=== PATIENT | male | born 1935 ===

== ENCOUNTER → 2017-05-24 | Outpatient (CLI) | payer MEDICARE, OTHER ==
[~2017-05-24] MED LIST: ASPI325 PO; CLON.1 PO; CLON.2 PO; CORTISONE28 GM TOP; CYCL10 PO; DOC250 PO; FURO20; HYDACE5 PO; HYDR1TAB94 PO; Hair, Skin & N1 EACH PO; LEVFLO500 PO; LORATADINE5 MG/5 M1 PO; LOSA25; LOSA50 PO; MELA3 PO; META800 PO; METO50ER PO; MIRT30 PO; Mucinex600 MG PO; OXYM.05NI; SENN187 PO; TAMS.4ER PO; TRAM50 PO; Valerian Root500 MG PO; XARELTO15 MG PO; Zantac150 MG PO; [UNRECOGNIZED DRUG - REMARK] PO
[2017-05-24 10:17] LABS: Microalbumin, Urine Quant. <5.000 mg/L (0.000-20.000); Protein, Urine Quantitative <5.0 mg/dL (0.0-11.9)
== END ==
LOC: LAB 08:48
PROVIDERS: Internal Medicine Nephrology
DX: N18.2 Chronic kidney disease, stage 2 (mild) (principal); D63.1 Anemia in chronic kidney disease; N25.81 Secondary hyperparathyroidism of renal origin; E55.9 Vitamin D deficiency, unspecified; E78.00 Pure hypercholesterolemia, unspecified; R94.6 Abnormal results of thyroid function studies; R94.5 Abnormal results of liver function studies; R76.9 Abnormal immunological finding in serum, unspecified
CPT/HCPCS: 81050; 82043; 84156

== ENCOUNTER → 2017-09-19 | Outpatient (CLI) | payer MEDICARE, OTHER ==
[~2017-09-19] MED LIST changes: -ASPI325 PO; -CLON.1 PO; -CLON.2 PO; -CORTISONE28 GM TOP; -DOC250 PO; -FURO20; -HYDR1TAB94 PO; -Hair, Skin & N1 EACH PO; -LEVFLO500 PO; -LORATADINE5 MG/5 M1 PO; -LOSA25; -LOSA50 PO; -MELA3 PO; -META800 PO; -METO50ER PO; -MIRT30 PO; -Mucinex600 MG PO; -OXYM.05NI; -SENN187 PO; -TAMS.4ER PO; -TRAM50 PO; -Valerian Root500 MG PO; -XARELTO15 MG PO; -Zantac150 MG PO
[2017-09-19 18:27] LABS: U Amphetamine Screen Not Detected; U Barbituate Screen DETECTED; U Benzodiazapine Screen DETECTED; U Buprenorphine Screen Not Detected; U Cannabinoids Screen Not Detected; U Cocaine Screen Not Detected; U Methadone Screen Not Detected; U Methamphetamine Screen DETECTED; U Opiates Screen Not Detected; U Oxycodone Screen Not Detected; U Phencyclidine Screen Not Detected
[2017-09-19 18:28] LABS: U Propoxyphene Screen Not Detected
== END | disposition home or self-care (01) ==
LOC: LAB 17:54 → LAB SHORT 17:54
PROVIDERS: Internal Medicine Hematology & Oncology
DX: Z51.81 Encounter for therapeutic drug level monitoring (principal); Z79.899 Other long term (current) drug therapy

== ENCOUNTER → 2018-03-27 | Outpatient (CLI) | payer MEDICARE, OTHER ==
[~2018-03-27] MED LIST changes: +ASPI325 PO; +CLON.1 PO; +CLON.2 PO; +CORTISONE28 GM TOP; +DOC250 PO; +FURO20; +HYDR1TAB94 PO; +Hair, Skin & N1 EACH PO; +LEVFLO500 PO; +LORATADINE5 MG/5 M1 PO; +LOSA25; +LOSA50 PO; +MELA3 PO; +META800 PO; +METO50ER PO; +MIRT30 PO; +Mucinex600 MG PO; +OXYM.05NI; +SENN187 PO; +TAMS.4ER PO; +TRAM50 PO; +Valerian Root500 MG PO; +XARELTO15 MG PO; +Zantac150 MG PO
[2018-03-27 13:53] LABS: U Amphetamine Screen Not Detected; U Barbituate Screen DETECTED; U Benzodiazapine Screen Not Detected; U Buprenorphine Screen Not Detected; U Cannabinoids Screen Not Detected; U Cocaine Screen Not Detected; U Methadone Screen Not Detected; U Methamphetamine Screen Not Detected; U Opiates Screen Not Detected; U Oxycodone Screen Not Detected; U Phencyclidine Screen Not Detected; U Propoxyphene Screen Not Detected
== END | disposition home or self-care (01) ==
LOC: LAB 12:54 → LAB SHORT 12:54
PROVIDERS: Internal Medicine Hematology & Oncology
DX: Z51.81 Encounter for therapeutic drug level monitoring (principal); Z79.899 Other long term (current) drug therapy
CPT/HCPCS: G0480

== ENCOUNTER → 2019-11-15 | Outpatient (CLI) | payer MEDICARE, OTHER ==
[2019-11-15 20:10] LABS: U Amphetamine Screen Not Detected; U Barbituate Screen DETECTED; U Benzodiazapine Screen Not Detected; U Buprenorphine Screen Not Detected; U Cannabinoids Screen Not Detected; U Cocaine Screen Not Detected; U Methadone Screen Not Detected; U Methamphetamine Screen Not Detected; U Opiates Screen DETECTED; U Oxycodone Screen Not Detected; U Phencyclidine Screen Not Detected; U Propoxyphene Screen Not Detected
== END | disposition home or self-care (01) ==
LOC: LAB 17:43 → LAB SHORT 17:43
PROVIDERS: Internal Medicine Hematology & Oncology
DX: Z51.81 Encounter for therapeutic drug level monitoring (principal); Z79.899 Other long term (current) drug therapy
CPT/HCPCS: G0480

== ENCOUNTER → 2020-05-29 | Outpatient (CLI) | payer MEDICARE, OTHER ==
[2020-05-29 16:09] LABS: U Benzodiazapine Screen DETECTED
[2020-05-29 16:10] LABS: U Amphetamine Screen Not Detected; U Barbituate Screen DETECTED; U Buprenorphine Screen Not Detected; U Cannabinoids Screen Not Detected; U Cocaine Screen Not Detected; U Methadone Screen Not Detected; U Methamphetamine Screen Not Detected; U Opiates Screen DETECTED; U Oxycodone Screen Not Detected; U Phencyclidine Screen Not Detected; U Propoxyphene Screen Not Detected
== END | disposition home or self-care (01) ==
LOC: LAB 10:30 → LAB SHORT 10:30
PROVIDERS: Internal Medicine Hematology & Oncology
DX: Z51.81 Encounter for therapeutic drug level monitoring (principal); Z79.899 Other long term (current) drug therapy
CPT/HCPCS: G0480

== ENCOUNTER → 2021-10-01 | Outpatient (CLI) | payer MEDICARE, OTHER ==
[2021-10-01 15:12] LABS: U Amphetamine Screen Not Detected; U Barbituate Screen DETECTED; U Benzodiazapine Screen Not Detected; U Buprenorphine Screen Not Detected; U Cannabinoids Screen Not Detected; U Cocaine Screen Not Detected; U Methadone Screen Not Detected; U Methamphetamine Screen Not Detected; U Opiates Screen DETECTED; U Oxycodone Screen Not Detected; U Phencyclidine Screen Not Detected; U Propoxyphene Screen Not Detected
== END | disposition home or self-care (01) ==
LOC: LAB SHORT 10:30 → LAB 10:30
PROVIDERS: Internal Medicine Hematology & Oncology
DX: Z51.81 Encounter for therapeutic drug level monitoring (principal); Z79.899 Other long term (current) drug therapy

== ENCOUNTER → 2021-11-26 | Outpatient (CLI) | payer MEDICARE, OTHER ==
[2021-11-26 12:03] LABS: U Amphetamine Screen Not Detected; U Barbituate Screen DETECTED; U Benzodiazapine Screen Not Detected; U Buprenorphine Screen Not Detected; U Cannabinoids Screen Not Detected; U Cocaine Screen Not Detected; U Methadone Screen Not Detected; U Methamphetamine Screen Not Detected; U Opiates Screen DETECTED; U Oxycodone Screen Not Detected; U Phencyclidine Screen Not Detected; U Propoxyphene Screen Not Detected
== END | disposition home or self-care (01) ==
LOC: LAB SHORT 09:20
PROVIDERS: Internal Medicine Hematology & Oncology
DX: Z51.81 Encounter for therapeutic drug level monitoring (principal); Z79.899 Other long term (current) drug therapy

== ENCOUNTER → 2021-12-24 | Outpatient (CLI) | payer MEDICARE, OTHER ==
[2021-12-24 15:29] LABS: U Amphetamine Screen Not Detected; U Barbituate Screen DETECTED; U Benzodiazapine Screen Not Detected; U Buprenorphine Screen Not Detected; U Cannabinoids Screen Not Detected; U Cocaine Screen Not Detected; U Methadone Screen Not Detected; U Methamphetamine Screen Not Detected; U Opiates Screen DETECTED; U Oxycodone Screen Not Detected; U Phencyclidine Screen Not Detected; U Propoxyphene Screen Not Detected
== END | disposition home or self-care (01) ==
LOC: LAB 09:58 → LAB SHORT 09:58
PROVIDERS: Internal Medicine Hematology & Oncology
DX: Z51.81 Encounter for therapeutic drug level monitoring (principal); Z79.899 Other long term (current) drug therapy
CPT/HCPCS: G0480

== ENCOUNTER → 2022-01-21 | Outpatient (CLI) | payer MEDICARE, OTHER ==
[2022-01-21 12:38] LABS: U Amphetamine Screen Not Detected; U Barbituate Screen DETECTED; U Benzodiazapine Screen Not Detected; U Buprenorphine Screen Not Detected; U Cannabinoids Screen Not Detected; U Cocaine Screen Not Detected; U Methadone Screen Not Detected; U Methamphetamine Screen Not Detected; U Opiates Screen DETECTED; U Oxycodone Screen Not Detected; U Phencyclidine Screen Not Detected; U Propoxyphene Screen Not Detected
== END | disposition home or self-care (01) ==
LOC: LAB SHORT 10:22 → LAB 10:22
PROVIDERS: Internal Medicine Hematology & Oncology
DX: Z51.81 Encounter for therapeutic drug level monitoring (principal); Z79.899 Other long term (current) drug therapy
CPT/HCPCS: G0480

== ENCOUNTER → 2022-02-18 | Outpatient (CLI) | payer MEDICARE, OTHER ==
[2022-02-18 13:30] LABS: U Amphetamine Screen Not Detected; U Barbituate Screen DETECTED; U Benzodiazapine Screen Not Detected; U Buprenorphine Screen Not Detected; U Cannabinoids Screen Not Detected; U Cocaine Screen Not Detected; U Methadone Screen Not Detected; U Methamphetamine Screen Not Detected; U Opiates Screen DETECTED; U Oxycodone Screen Not Detected; U Phencyclidine Screen Not Detected; U Propoxyphene Screen Not Detected
== END | disposition home or self-care (01) ==
LOC: LAB SHORT 10:03
PROVIDERS: Internal Medicine Hematology & Oncology
DX: Z51.81 Encounter for therapeutic drug level monitoring (principal); Z79.899 Other long term (current) drug therapy

== ENCOUNTER → 2022-04-15 | Outpatient (CLI) | payer MEDICARE, OTHER ==
[2022-04-15 12:45] LABS: U Amphetamine Screen Not Detected; U Barbituate Screen DETECTED; U Benzodiazapine Screen Not Detected; U Buprenorphine Screen Not Detected; U Cannabinoids Screen Not Detected; U Cocaine Screen Not Detected; U Methadone Screen Not Detected; U Methamphetamine Screen Not Detected; U Opiates Screen DETECTED; U Oxycodone Screen Not Detected; U Phencyclidine Screen Not Detected; U Propoxyphene Screen Not Detected
== END | disposition home or self-care (01) ==
LOC: LAB 10:09 → LAB SHORT 10:09
PROVIDERS: Internal Medicine Hematology & Oncology
DX: Z51.81 Encounter for therapeutic drug level monitoring (principal); Z79.899 Other long term (current) drug therapy

== ENCOUNTER → 2022-06-10 | Outpatient (CLI) | payer MEDICARE, OTHER ==
[2022-06-10 15:21] LABS: U Amphetamine Screen Not Detected; U Barbituate Screen DETECTED; U Benzodiazapine Screen Not Detected; U Buprenorphine Screen Not Detected; U Cannabinoids Screen DETECTED; U Cocaine Screen Not Detected; U Methadone Screen Not Detected; U Methamphetamine Screen Not Detected; U Opiates Screen DETECTED; U Oxycodone Screen Not Detected; U Phencyclidine Screen Not Detected; U Propoxyphene Screen Not Detected
== END | disposition home or self-care (01) ==
LOC: LAB SHORT 10:30
PROVIDERS: Internal Medicine Hematology & Oncology
DX: Z51.81 Encounter for therapeutic drug level monitoring (principal); Z79.899 Other long term (current) drug therapy

== ENCOUNTER → 2022-07-08 | Outpatient (CLI) | payer MEDICARE, OTHER ==
[2022-07-08 14:01] LABS: U Amphetamine Screen Not Detected; U Methamphetamine Screen Not Detected
[2022-07-08 14:02] LABS: U Barbituate Screen DETECTED; U Benzodiazapine Screen Not Detected; U Buprenorphine Screen Not Detected; U Cannabinoids Screen Not Detected; U Cocaine Screen Not Detected; U Methadone Screen Not Detected; U Opiates Screen DETECTED; U Oxycodone Screen Not Detected; U Phencyclidine Screen Not Detected; U Propoxyphene Screen Not Detected
== END | disposition home or self-care (01) ==
LOC: LAB SHORT 10:16
PROVIDERS: Internal Medicine Hematology & Oncology
DX: Z51.81 Encounter for therapeutic drug level monitoring (principal); Z79.899 Other long term (current) drug therapy

== ENCOUNTER → 2022-09-02 | Outpatient (CLI) | payer MEDICARE, OTHER ==
[2022-09-02 20:02] LABS: U Amphetamine Screen Not Detected; U Barbituate Screen DETECTED; U Benzodiazapine Screen Not Detected; U Buprenorphine Screen Not Detected; U Cannabinoids Screen Not Detected; U Cocaine Screen Not Detected; U Methadone Screen Not Detected; U Methamphetamine Screen Not Detected; U Opiates Screen DETECTED; U Oxycodone Screen Not Detected; U Phencyclidine Screen Not Detected; U Propoxyphene Screen Not Detected
== END | disposition home or self-care (01) ==
LOC: LAB 17:23 → LAB SHORT 17:23
PROVIDERS: Internal Medicine Hematology & Oncology
DX: Z51.81 Encounter for therapeutic drug level monitoring (principal); Z79.899 Other long term (current) drug therapy
CPT/HCPCS: G0480

== ENCOUNTER → 2022-09-30 | Outpatient (CLI) | payer MEDICARE, OTHER ==
[2022-09-30 18:23] LABS: U Amphetamine Screen Not Detected; U Barbituate Screen DETECTED; U Benzodiazapine Screen Not Detected; U Buprenorphine Screen Not Detected; U Cannabinoids Screen Not Detected; U Cocaine Screen Not Detected; U Methadone Screen Not Detected; U Methamphetamine Screen Not Detected; U Opiates Screen DETECTED; U Oxycodone Screen Not Detected; U Phencyclidine Screen Not Detected; U Propoxyphene Screen Not Detected
== END | disposition home or self-care (01) ==
LOC: LAB SHORT 17:14 → LAB 17:14
PROVIDERS: Internal Medicine Hematology & Oncology
DX: Z51.81 Encounter for therapeutic drug level monitoring (principal); Z79.899 Other long term (current) drug therapy
CPT/HCPCS: G0480

== ENCOUNTER → 2023-01-20 | Outpatient (CLI) | payer MEDICARE, OTHER ==
[2023-01-20 15:08] LABS: U Amphetamine Screen Not Detected; U Barbituate Screen DETECTED; U Benzodiazapine Screen Not Detected; U Buprenorphine Screen Not Detected; U Cannabinoids Screen DETECTED; U Cocaine Screen Not Detected; U Methadone Screen Not Detected; U Methamphetamine Screen Not Detected; U Opiates Screen DETECTED; U Oxycodone Screen Not Detected; U Phencyclidine Screen Not Detected; U Propoxyphene Screen Not Detected
[2023-01-26 16:08] LABS: CARBOXY-THC 44 (.)
== END | disposition home or self-care (01) ==
LOC: LAB 13:33 → LAB SHORT 13:33
PROVIDERS: Internal Medicine Hematology & Oncology
DX: M54.16 Radiculopathy, lumbar region (principal); G89.29 Other chronic pain; Z79.899 Other long term (current) drug therapy
CPT/HCPCS: G0480

== ENCOUNTER → 2023-02-17 | Outpatient (CLI) | payer MEDICARE, OTHER ==
[2023-02-17 16:16] LABS: U Amphetamine Screen Not Detected; U Barbituate Screen DETECTED; U Benzodiazapine Screen Not Detected; U Buprenorphine Screen Not Detected; U Cannabinoids Screen Not Detected; U Cocaine Screen Not Detected; U Methadone Screen Not Detected; U Methamphetamine Screen Not Detected; U Opiates Screen DETECTED; U Oxycodone Screen Not Detected; U Phencyclidine Screen Not Detected
== END | disposition home or self-care (01) ==
LOC: LAB SHORT 14:11 → LAB 14:11
PROVIDERS: Internal Medicine Hematology & Oncology
DX: Z51.81 Encounter for therapeutic drug level monitoring (principal); Z79.899 Other long term (current) drug therapy

== ENCOUNTER → 2023-03-17 | Outpatient (CLI) | payer MEDICARE, OTHER ==
[2023-03-17 15:40] LABS: U Amphetamine Screen Not Detected; U Barbituate Screen DETECTED; U Benzodiazapine Screen Not Detected; U Buprenorphine Screen Not Detected; U Cannabinoids Screen Not Detected; U Cocaine Screen Not Detected; U Methadone Screen Not Detected; U Methamphetamine Screen Not Detected; U Opiates Screen DETECTED; U Oxycodone Screen Not Detected; U Phencyclidine Screen Not Detected
== END ==
LOC: LAB 12:48 → LAB SHORT 12:48
PROVIDERS: Internal Medicine Hematology & Oncology
DX: Z51.81 Encounter for therapeutic drug level monitoring (principal); Z79.899 Other long term (current) drug therapy

== ENCOUNTER → 2023-07-07 | Outpatient (CLI) | payer MEDICARE, OTHER ==
[2023-07-07 14:41] LABS: U Cannabinoids Screen DETECTED; U Opiates Screen DETECTED
[2023-07-07 14:42] LABS: U Amphetamine Screen Not Detected; U Barbituate Screen DETECTED; U Benzodiazapine Screen Not Detected; U Buprenorphine Screen Not Detected; U Cocaine Screen Not Detected; U Methadone Screen Not Detected; U Methamphetamine Screen Not Detected; U Oxycodone Screen Not Detected; U Phencyclidine Screen Not Detected
== END | disposition home or self-care (01) ==
LOC: LAB SHORT 13:32 → LAB 13:32
PROVIDERS: Internal Medicine Hematology & Oncology
DX: G89.29 Other chronic pain (principal); Z79.899 Other long term (current) drug therapy

== ENCOUNTER → 2023-08-31 | Outpatient (CLI) | payer MEDICARE, OTHER ==
[2023-08-31 14:26] LABS: U Barbituate Screen DETECTED; U Opiates Screen DETECTED
[2023-08-31 14:27] LABS: U Amphetamine Screen Not Detected; U Benzodiazapine Screen Not Detected; U Buprenorphine Screen Not Detected; U Cannabinoids Screen Not Detected; U Cocaine Screen Not Detected; U Methadone Screen Not Detected; U Methamphetamine Screen Not Detected; U Oxycodone Screen Not Detected; U Phencyclidine Screen Not Detected
== END ==
LOC: LAB SHORT 10:05 → LAB 10:05
PROVIDERS: Internal Medicine Hematology & Oncology
DX: Z51.81 Encounter for therapeutic drug level monitoring (principal); Z79.899 Other long term (current) drug therapy

== ENCOUNTER → 2023-11-24 | Outpatient (CLI) | payer MEDICARE, OTHER ==
[2023-11-24 15:37] LABS: U Amphetamine Screen Not Detected; U Barbituate Screen Not Detected; U Benzodiazapine Screen Not Detected; U Buprenorphine Screen Not Detected; U Cannabinoids Screen Not Detected; U Cocaine Screen Not Detected; U Methadone Screen Not Detected; U Methamphetamine Screen Not Detected; U Opiates Screen DETECTED; U Oxycodone Screen Not Detected; U Phencyclidine Screen Not Detected
== END ==
LOC: LAB SHORT 10:39 → LAB 10:39
PROVIDERS: Internal Medicine Hematology & Oncology
DX: Z51.81 Encounter for therapeutic drug level monitoring (principal); Z79.899 Other long term (current) drug therapy

== ENCOUNTER → 2024-03-08 | Outpatient (CLI) | payer MEDICARE, OTHER ==
[2024-03-08 14:48] LABS: U Amphetamine Screen Not Detected; U Barbituate Screen DETECTED; U Benzodiazapine Screen Not Detected; U Buprenorphine Screen Not Detected; U Cannabinoids Screen Not Detected; U Cocaine Screen Not Detected; U Methadone Screen Not Detected; U Methamphetamine Screen Not Detected; U Opiates Screen DETECTED; U Oxycodone Screen Not Detected; U Phencyclidine Screen Not Detected
== END ==
LOC: LAB SHORT 13:57 → LAB 13:57
PROVIDERS: Internal Medicine Hematology & Oncology
DX: Z51.81 Encounter for therapeutic drug level monitoring (principal); Z79.899 Other long term (current) drug therapy

== ENCOUNTER → 2024-04-05 | Outpatient (CLI) | payer MEDICARE, OTHER ==
[2024-04-05 14:42] LABS: U Opiates Screen DETECTED
[2024-04-05 14:43] LABS: U Amphetamine Screen Not Detected; U Barbituate Screen DETECTED; U Benzodiazapine Screen Not Detected; U Buprenorphine Screen Not Detected; U Cannabinoids Screen Not Detected; U Cocaine Screen Not Detected; U Methadone Screen Not Detected; U Methamphetamine Screen Not Detected; U Oxycodone Screen Not Detected; U Phencyclidine Screen Not Detected
== END ==
LOC: LAB 12:59 → LAB SHORT 12:59
PROVIDERS: Internal Medicine Hematology & Oncology
DX: Z51.81 Encounter for therapeutic drug level monitoring (principal); Z79.899 Other long term (current) drug therapy

== ENCOUNTER 2024-07-05 18:12 | Inpatient (IN) | payer MEDICARE, OTHER ==
[~2024-07-05] VITALS: Ht 172.7 cm; Wt 76.8 kg
[~2024-07-05 18:12] MED LIST changes: +CATAPRES0.1 MG PO; +LORA10ER PO; -LORATADINE5 MG/5 M1 PO
[2024-07-05] MEDS ORDERED: Furosemide 10 MG/ML 4ML Vial IV ONE (18:30)
[2024-07-05 20:10] LABS: Bicarbonate Venous 26.6 mmol/L (24.0-30.0); PCO2 Venous 39.8 mmHg (38-42); pH Blood Venous 7.44 (7.34-7.37)
[2024-07-05 20:16] LABS: BASOPHILS ABSOLUTE AUTO 0.06 K/mm3 (0.00-0.23); BASOPHILS PERCENT AUTO 1 % (0-2); EOSINOPHILS ABSOLUTE AUTO 0.16 K/mm3 (0.00-0.68); EOSINOPHILS PERCENT AUTO 2 % (0-6); Hematocrit 38.9 % (37.0-53.0); Hemoglobin 13.2 g/dL (13.5-17.5); IMMATURE GRAN ABSOLUTE AUTO 0.05 K/mm3 (0.00-0.10); IMMATURE GRAN PERCENT AUTO 1 % (0-1); LYMPHOCYTES ABSOLUTE AUTO 0.61 K/mm3 (0.84-5.20); LYMPHOCYTES PERCENT AUTO 7 % (21-46); MONOCYTES PERCENT AUTO 11 % (4-13); Mean Corpuscular HGB Conc 33.9 g/dL (31.5-36.5); Mean Corpuscular Volume 91 fL (80-100); Mean Platelet Volume 8.6 fL (9.1-12.4); NEUTROPHILS ABSOLUTE AUTO 7.01 K/mm3 (1.96-9.15); NEUTROPHILS PERCENT AUTO 79 % (41-73); Platelet Count 225 K/mm3 (150-400); RDW Coefficient Variation 14.1 % (11.7-14.2); RDW Standard Deviation 46.9 fL (35.1-46.3); Red Blood Cell Count 4.26 M/mm3 (4.30-5.90); White Blood Cell Count 8.89 K/mm3 (4.00-11.30)
[2024-07-05 20:42] LABS: Bun/Creatinine Ratio 17.9 (12.0-20.0); Calcium, Blood 8.6 mg/dL (8.5-10.1); Creatinine, Blood 0.84 mg/dL (0.60-1.20); Potassium, Blood 4.7 mmol/L (3.5-5.5)
[2024-07-05] MEDS ORDERED: Ondansetron HCl 2 MG / ML 2ML Vial IV PRN (21:20)
[2024-07-05 21:36] LABS: Influenza A, PCR NEGATIVE (NEGATIVE); Influenza B, PCR NEGATIVE (NEGATIVE); Resp Syncytial Virus, PCR NEGATIVE (NEGATIVE); SARS-Cov-2 (COVID-19) PCR, MMC NEGATIVE (NEGATIVE)
[2024-07-05] MEDS ORDERED: Tamsulosin HCl 0.4 MG Cap PO ONE (22:00)
[2024-07-05] MEDS ORDERED: CloNIDine 0.1 MG Tab PO SCH (22:00)
[2024-07-06] VITALS (8 sets, daily range): BP systolic 115–163; BP diastolic 83–111
--- NOTE | 2024-07-06 04:11 | NUR ---
PT ADMITTED FROM ED. PT A&O X4. B/P ELEVATED, O2 SATS LOW WITHOUT O2/NC. PT DENIES PAIN. TELE NSR IN 60'S. UP WITH SBA, EDEMA IN BILATERAL ANKLES, WITH LEFT GREATER THEN RIGHT. PT WITH MARRERO D/T SEVERE RETENTION, UOP IS ABOVE AVERAGE. X1 DOSE OF IVP LASIX IN ED, WILL CONTINUE TO MONITOR LABS, L/S ARE COARSE T/O. CAN UTILIZE CALL SYSTEM WITHOUT ISSUE.
[2024-07-06 06:09] LABS: Bun/Creatinine Ratio 19.4 (12.0-20.0); Calcium, Blood 8.5 mg/dL (8.5-10.1); Creatinine, Blood 0.88 mg/dL (0.60-1.20); Magnesium, Blood 2.2 mg/dL (1.6-2.4)
[2024-07-06] MEDS ORDERED: Hydrocortisone 2.5% Cream 30 GM Tube TOP PRN (07:15)
[2024-07-06] MEDS ORDERED: Metoprolol Succinate 50 MG TABCR PO SCH (09:00)
[2024-07-06] MEDS ORDERED: CloNIDine HCl 0.2 MG Tab PO SCH (09:00)
[2024-07-06] MEDS ORDERED: Multivitamins/Minerals TAB PO SCH (09:00)
[2024-07-06] MEDS ORDERED: GuaiFENesin 600 MG TabCR PO SCH (09:00)
[2024-07-06] MEDS ORDERED: Ferrous Sulfate 325 MG Tab PO SCH (09:00)
[2024-07-06] MEDS ORDERED: Empagliflozin 10 MG TAB PO SCH (09:00)
[2024-07-06] MEDS ORDERED: Rivaroxaban 10 MG Tab PO SCH (09:00)
[2024-07-06] MEDS ORDERED: Sennosides 8.6 MG Tab PO SCH (09:00)
[2024-07-06] MEDS ORDERED: Tamsulosin HCl 0.4 MG Cap PO SCH (09:00)
[2024-07-06] MEDS ORDERED: Furosemide 10 MG/ML 4ML Vial IV SCH (09:00)
[2024-07-06] MEDS ORDERED: Docusate Sodium 250 MG Cap PO SCH (09:00)
[2024-07-06] MEDS ORDERED: Losartan Potassium 50 MG Tab PO SCH (09:00)
[2024-07-06] MEDS ORDERED: HYDROcodone 5-APAP 325 TAB PO SCH (12:00)
[2024-07-06 12:42] LABS: Bun/Creatinine Ratio 18.2 (12.0-20.0); Calcium, Blood 9.1 mg/dL (8.5-10.1); Creatinine, Blood 0.94 mg/dL (0.60-1.20); Potassium, Blood 3.9 mmol/L (3.5-5.5)
[2024-07-06] MEDS ORDERED: HYDROcodone 5-APAP 325 TAB PO PRN (14:15)
--- NOTE | 2024-07-06 16:40 | NUR ---
SHIFT SUMMARY: PATIENT A&OX4, PLEASANT AND COOPERATIVE c CARE. PATIENT STILL HAS WEAKNESS IN BILAT EXTREMITIES W/ PITTING EDEMA. PATIENT IS ON TELE SR IN 70s WITH BUNDLE BRANCH BLOCK AND PVCs. NO CARDIAC CHANGES T/O THIS SHIFT. PATIENT HAD AN ECHO DONE TODAY RESULTS ARE PENDING. PATIENT DENIES ANY CHEST PAIN/PRESSURE, DIZZINESS, OR HEADACHES. PATIENT STARTED THIS AM ON 3 LITERS OF NC, SATURATION REMAINED ABOVE 90%. PATIENT ABLE TO STAND AND HANDLE A SHOWER TODAY c SBA. PT REPORTED NO SOB OR DIZZINESS WHEN GETTING UP AND SHOWERING. AROUND 1300 PATIENT WAS TITRATED DOWN TO 2 LITERS NC SATTING ABOVE 95%. PATIENT STATES, "LAST BM YESTERDAY." PATIENT DENIES ANY N/V, OR DISCOMFORT. PATIENT HAS A MARRERO NOTED A REDISH TINGE COLOR IN IT. MARRERO IS DRAINING 1900 MLS OF URINE TO GRAVITY. PATIENT DENIES ANY DISCOMFORT CONTINUING TO MONITOR. SCHEDULED MEDS GIVEN PER EMAR. PATIENT IS 1 PER ASSIST c WALKER TOLERATES AMBULATION WELL. PIV FLUSHES WELL W/O COMPLAINTS. VISITED AND WAS IN ROOM T/O THIS SHIFT. PATIENT ASKS QUESTIONS APPROPRIATELY, AND IS VERY COMPLIANT ABOUT HIS CARE. BED IN LOWEST POSITION, AND CALL LIGHT IN REACH.
[2024-07-06] MEDS ORDERED: Melatonin 3 MG Tab PO SCH (21:00)
[2024-07-07] VITALS (7 sets, daily range): BP systolic 100–158; BP diastolic 59–101
--- NOTE | 2024-07-07 02:54 | NUR ---
SHIFT SUMMARY NO ACUTE EVENTS DURING THIS SHIFT. TELE SR @69. PT C/O 4/ H/A, MEDICATED PER EMAR. MARRERO DRAINING TO GRAVITY TEA COLOR URINE, OUTPUT>700MLS. BILATERAL LE EDEMA +2. SRICT I&O'S. O2 @2L VIA NASAL CANNULA, SAT'S>95%. PT DENIES SOB. PT IS A/O X4, ABLE TO MAKE HIS NEEDS KNOWN AND COOPERATIVE WITH CARE. BED AT THE LOWEST POSITION, CALL LIGHT W/I REACH.
[2024-07-07 05:52] LABS: BASOPHILS ABSOLUTE AUTO 0.06 K/mm3 (0.00-0.23); BASOPHILS PERCENT AUTO 1 % (0-2); EOSINOPHILS ABSOLUTE AUTO 0.22 K/mm3 (0.00-0.68); EOSINOPHILS PERCENT AUTO 3 % (0-6); Hematocrit 38.2 % (37.0-53.0); Hemoglobin 13.3 g/dL (13.5-17.5); IMMATURE GRAN ABSOLUTE AUTO 0.09 K/mm3 (0.00-0.10); IMMATURE GRAN PERCENT AUTO 1 % (0-1); LYMPHOCYTES ABSOLUTE AUTO 0.98 K/mm3 (0.84-5.20); LYMPHOCYTES PERCENT AUTO 12 % (21-46); MONOCYTES ABSOLUTE AUTO 1.11 K/mm3 (0.16-1.47); MONOCYTES PERCENT AUTO 14 % (4-13); Mean Corpuscular HGB 31.4 pg (26.0-34.0); Mean Corpuscular HGB Conc 34.8 g/dL (31.5-36.5); Mean Corpuscular Volume 90 fL (80-100); Mean Platelet Volume 8.6 fL (9.1-12.4); NEUTROPHILS ABSOLUTE AUTO 5.54 K/mm3 (1.96-9.15); NEUTROPHILS PERCENT AUTO 69 % (41-73); Platelet Count 225 K/mm3 (150-400); RDW Coefficient Variation 14.5 % (11.7-14.2); RDW Standard Deviation 47.7 fL (35.1-46.3); Red Blood Cell Count 4.23 M/mm3 (4.30-5.90)
[2024-07-07 05:57] LABS: Albumin, Blood 3.1 g/dL (3.4-5.0); Bilirubin, Total 0.8 mg/dL (0.1-1.0); Bun/Creatinine Ratio 19.8 (12.0-20.0); Calcium, Blood 8.7 mg/dL (8.5-10.1); Creatinine, Blood 0.86 mg/dL (0.60-1.20); Globulin, Blood 3.1 g/dL (2.2-4.0); Potassium, Blood 3.9 mmol/L (3.5-5.5); Total Protein, Blood 6.2 g/dL (6.4-8.2)
--- NOTE | 2024-07-07 07:50 | NUR ---
ASSUMPTION OF CARE: ASSUMED CARE OF PATIENT. AWAKE DURING SHIFT CHANGE REPORT. LYING SUPINE IN BED c HOB ELEVATED. BREATHING EVEN AND UNLABORED ON 2LPM/NC. MARRERO PATENT AND DRAINING TEA-COLORED URINE TO GRAVITY. TELE SR c PVC & BBB @ 66. PT REPORTS BEING VERY ANXIOUS AND "WANTING TO GO TODAY" BECAUSE HE'S "GOING CRAZY" AND "THERE'S NOTHING LEFT TO DO HERE". LET HIM KNOW WE WILL HAVE PROVIDER DISCUSS c HIM. BED IN LOWEST POSITION. CALL LIGHT WITHIN REACH. NO ACUTE NEEDS.
[2024-07-07] MEDS ORDERED: Potassium Chloride 20 MEQ TabCR PO SCH (09:00)
[2024-07-07] MEDS ORDERED: Furosemide 10 MG/ML 4ML Vial IV SCH (09:00)
--- NOTE | 2024-07-07 16:47 | NUR ---
CALL FROM TELE. PATIENT HAD TWO SIX-SECOND BEATS OF BIGEMINY. PATIENT ASYMPTOMATIC.
--- NOTE | 2024-07-07 17:57 | NUR ---
END OF SHIFT SUMMARY: A&Ox4. PLEASANT AND COOPERATIVE WITH CARE. CALLS APPROPRIATELY AND IS ABLE TO ADVOCATE NEEDS EFFECTIVELY. CONTINENT OF BOWEL; LBM 07/06/24. AMBULATES SBA c FWW. MEDS WHOLE c FLUIDS. NO C / O PAIN OR DISCOMFORT. TELE RUNNING SINUS c BBB & PVCs @ 66. EPISODE OF ASYMPTOMATIC BIGEMINY. LASIX INCREASED TO BID. STRICT I/Os c 1800mL FLUID RESTRICTION. MAINTAINING SPO2 >90% ON ROOM AIR WHILE AWAKE. MARRERO PATENT AND DRAININ URINE TO GRAVITY; COLOR LIGHTENED FROM TEA TO YELLOW. , [place], AT BEDSIDE, FOR MUCH OF THE DAY TO VISIT. ANTICIPATE DISCHARGE TOMORROW. BED IN LOWEST POSITION, CALL LIGHT WITHIN REACH, ALL NEEDS MET. REPORT TO ONCOMING NURSE.
--- NOTE | 2024-07-07 18:22 | NUR ---
PATIENT DESATURATED <90% ON RA WHILE EATING. PLACED BACK ON 1LPM/NC. TOLERATES RA @ REST s ANY ACTIVITY, OTHERWISE.
[2024-07-07] MEDS ORDERED: CloNIDine 0.1 MG Tab PO SCH (21:00)
[2024-07-07] MEDS ORDERED: Losartan Potassium 50 MG Tab PO SCH (21:00)
[2024-07-08 00:07] VITALS: BP 110/77
--- NOTE | 2024-07-08 02:48 | NUR ---
SHIFT SUMMARY NO ACUTE EVENTS DURING THIS SHIFT. PT CONTINUES ON 0.5L VIA NASAL CANNULA. CONTINUOUS PULSE OXIMETER SAT'S LOW 90'S. PT DENIES COUGH AND SOB. PT DENIES PAIN. PT REFUSED MOST OF THE SCHEDULED HS MEDICATIONS. MELATONIN ADMINISTERED ORDERED. PT REPORTS HAVING VERY LITTLE SLEEP W/I PAST FEW NIGHTS. RESTING COMFORTABLY T/O THIS SHIFT. HOB ELEVATED. NO ACUTE DISTRESS NOTED/REPORTED. MARRERO DRAINING DARK YELLOW URINE TO GRAVITY, OUTPUT>500MLS. PT DENIES DISCOMFORT. PT WOULD LIKE TO D/ TODAY. TELE:SR @62 WITH BB. BED AT THE LOWEST POSITION, CALL LIGHT W/I REACH. PT IS A/O X4, COOPERATIVE WITH CARE AND ABLE TO MAKE HIS NEEDS KNOWN.
[2024-07-08 05:02] VITALS: BP 125/83
[2024-07-08 05:46] LABS: Bun/Creatinine Ratio 24.7 (12.0-20.0); Calcium, Blood 8.9 mg/dL (8.5-10.1); Creatinine, Blood 0.89 mg/dL (0.60-1.20)
[2024-07-08 07:51] VITALS: BP 134/99
[2024-07-08] MEDS ORDERED: MethylPREDNISolone Sod Succ 125 MG Vial IV ONE (07:53)
[2024-07-08] MEDS ORDERED: Metoprolol Succinate 50 MG TABCR PO SCH (09:00)
[2024-07-08] MEDS ORDERED: MethylPREDNISolone Sod Succ 125 MG Vial IV SCH (09:00)
[2024-07-08 10:47] VITALS: BP 119/94
--- NOTE | 2024-07-08 11:08 | NUR ---
CALL FROM [facility] IN TELE STATING PATIENT WAS SHOWING S-T CHANGES--SPECIFICALLY, DEPRESSION--IN THREE LEADS. PROVIDER @ BEDSIDE AND NOTIFIED. EKG PERFORMED; WANDERING BASELINE D/T BONY PROMINENCES AND PATIENT DIAPHORETIC AND SLIGHTLY LABORED BREATHING. VSS. STAT TROPS DRAWN. AWAITING RESULTS.
[2024-07-08] MEDS ORDERED: JARDIANCE10 MG PO (13:51)
[2024-07-08] MEDS ORDERED: FURO20 PO (13:52)
[2024-07-08] MEDS ORDERED: Prednisone10 MG PO (16:24)
--- NOTE | 2024-07-08 19:20 | NUR ---
ASSUMED CARE, PT DISCHARGED WITH HOME O2 DISCHARGE INST GIVEN AND VERBALIZED UNDERSTANDING IV REMOVED TELE REMOVED
== END 2024-07-08 17:23 | disposition home health service (06) | DRG 291 ==
LOC: ER 18:12 → MEDS 21:17 → ERHOLD 21:17 → MEDS 23:28
PROVIDERS: Emergency Medicine; Nurse Practitioner Acute Care; ADMIT Internal Medicine
DX: I11.0 Hypertensive heart disease with heart failure (principal); I50.31 Acute diastolic (congestive) heart failure; J96.01 Acute respiratory failure with hypoxia; E87.1 Hypo-osmolality and hyponatremia; E87.3 Alkalosis; N40.1 Benign prostatic hyperplasia with lower urinary tract symptoms; R33.8 Other retention of urine; K59.00 Constipation, unspecified; I16.0 Hypertensive urgency; K21.9 Gastro-esophageal reflux disease without esophagitis; Z88.8 Allergy status to other drugs, medicaments and biological substances; Z96.659 Presence of unspecified artificial knee joint; G47.00 Insomnia, unspecified; I48.0 Paroxysmal atrial fibrillation; Z86.718 Personal history of other venous thrombosis and embolism; Z85.46 Personal history of malignant neoplasm of prostate; Z92.3 Personal history of irradiation; Z79.899 Other long term (current) drug therapy; Z79.01 Long term (current) use of anticoagulants; Z99.81 Dependence on supplemental oxygen
CPT/HCPCS: 0241U; 36415; 51702; 51798; 71045; 80048; 80053; 82803; 83735; 83880; 84484; 85025; 93005; 93010; 93306; 94761; 94762; 96374; 99285-25; A9270; J1940; J2919

== ENCOUNTER → 2024-07-24 | Outpatient (CLI) | payer MEDICARE, OTHER ==
[~2024-07-24] MED LIST changes: +FURO20 PO; +JARDIANCE10 MG PO; +Prednisone10 MG PO
[2024-07-25 10:21] LABS: Source, Urine Clean Catch
[2024-07-25 12:08] LABS: Appearance, Urine Hazy (Clear); Bilirubin, Urine Neg (Neg); Blood, Urine 4+ (Neg); Color, Urine Yellow (P-Yellow); Glucose Qualitative, Urine 4+ (Neg); Ketones, Urine Neg (Neg); Leukocyte Esterase, Urine 3+ (Neg); Nitrite, Urine Neg (Neg); Protein, Urine 3+ (Neg); Specific Gravity, Urine 1.015 (1.003-1.022); Urobilinogen, Urine NORM (Normal); pH, Urine 6.5 (5.0-8.0)
[2024-07-25 13:06] LABS: Bacteria Many /hpf; Squamous Epithelial Cells Not Seen /hpf (Few); Transitional Epithelial Cells Rare /hpf (0-Rare); White Blood Cells, Urine TNTC /hpf (0-5)
== END ==
LOC: LAB SHORT 18:28 → LAB 18:28
PROVIDERS: Internal Medicine Hematology & Oncology
DX: I48.91 Unspecified atrial fibrillation (principal); R30.0 Dysuria; I12.9 Hypertensive chronic kidney disease with stage 1 through stage 4 chronic kidney disease, or unspecified chronic kidney disease; E87.70 Fluid overload, unspecified
CPT/HCPCS: 36415; 80053; 81001; 83880; 84100; 85025; 87077; 87086; 87186

== ENCOUNTER → 2024-08-21 | Outpatient (CLI) | payer MEDICARE, OTHER ==
[~2024-08-21] MED LIST changes: +ASPI81CH PO; +GUAI600T33; +PANT40
[2024-08-21 17:24] LABS: Source, Urine Clean Catch
[2024-08-21 18:40] LABS: Appearance, Urine Hazy (Clear); Bilirubin, Urine Neg (Neg); Blood, Urine 1+ (Neg); Color, Urine Yellow (P-Yellow); Glucose Qualitative, Urine 4+ (Neg); Ketones, Urine Neg (Neg); Leukocyte Esterase, Urine 3+ (Neg); Nitrite, Urine Neg (Neg); Protein, Urine 1+ (Neg); Urobilinogen, Urine NORM (Normal)
[2024-08-21 18:47] LABS: Bacteria Mod /hpf; Squamous Epithelial Cells Few /hpf (Few); White Blood Cells, Urine TNTC /hpf (0-5)
== END ==
LOC: LAB SHORT 17:22 → LAB 17:22
PROVIDERS: Urology
DX: R97.20 Elevated prostate specific antigen [PSA] (principal); Z87.440 Personal history of urinary (tract) infections
CPT/HCPCS: 81001; 87077; 87086; 87186

== ENCOUNTER 2024-08-24 13:42 | Day surgery (SDC) | payer MEDICARE, OTHER ==
[~2024-08-24] VITALS: Ht 167.6 cm; Wt 74.9 kg
[~2024-08-24 13:42] MED LIST changes: -ASPI81CH PO; +Atropine Sulfate 0.1 MG/ML 10ML SYR ONE; -GUAI600T33; +Glycopyrrolate 0.2 MG/ML 1MLVIAL ONE; +Lactated Ringer's 1,000 ML IV ONE; +Lidocaine 2% 5 ML SDV ONE; +Lidocaine HCl/Pf 1% 5 ML VIAL ONE; +Methylene Blue 1% 100 MG/10 ML VIAL ONE; +Ondansetron HCl 2 MG / ML 2ML Vial ONE; -PANT40; +ePHEDrine Sulfate 50 MG/ML 1ML Injection ONE
[2024-08-24] MEDS ORDERED: PANT40 (14:08)
[2024-08-24] MEDS ORDERED: ASPI81CH PO (14:09)
[2024-08-24] MEDS ORDERED: GUAI600T33 (14:10)
[2024-08-24] MEDS ORDERED: propofoL 50 ML IV ONE (14:27)
[2024-08-24] MEDS ORDERED: Lactated Ringer's 1,000 ML IV ONE (14:50)
[2024-08-24 16:30] VITALS: BP 132/90
== END 2024-08-24 16:10 | disposition home or self-care (01) ==
LOC: ORSCSDS 13:42
PROVIDERS: Internal Medicine Gastroenterology
PROC: 0DBN8ZX Excision of Sigmoid Colon, Via Natural or Artificial Opening Endoscopic, Diagnostic (ICD-10-PCS; principal; 2024-08-24 15:00)
PROC: 0DBL8ZX Excision of Transverse Colon, Via Natural or Artificial Opening Endoscopic, Diagnostic (ICD-10-PCS; principal; 2024-08-24 15:00)
DX: R19.4 Change in bowel habit (principal); D12.3 Benign neoplasm of transverse colon; D12.5 Benign neoplasm of sigmoid colon; R10.84 Generalized abdominal pain; K57.30 Diverticulosis of large intestine without perforation or abscess without bleeding; Z85.46 Personal history of malignant neoplasm of prostate; I48.91 Unspecified atrial fibrillation; I10 Essential (primary) hypertension; E11.9 Type 2 diabetes mellitus without complications; K21.9 Gastro-esophageal reflux disease without esophagitis; Z79.82 Long term (current) use of aspirin; Z79.899 Other long term (current) drug therapy; Z79.01 Long term (current) use of anticoagulants; Z79.84 Long term (current) use of oral hypoglycemic drugs
CPT/HCPCS: 88305; J0461; J2003; J2405; J2704; J7120; Q9968